=== PATIENT | male | born 1940 | race Caucasian/White ===

== ENCOUNTER 2022-05-28 19:35 | Inpatient (IN) | payer BC, MEDICARE ==
[~2022-05-28] VITALS: Ht 180.3 cm; Wt 88.6 kg
[2022-05-28 19:54] LABS: BASOPHILS % (AUTO) 0.1 % (0-1); EOSINOPHILS % (AUTO) 0 % (0-6); HEMATOCRIT 38.9 % (42.0-52.0); HEMOGLOBIN 12.9 g/dl (14.0-17.9); LYMPHOCYTES # (AUTO) 0.2 X10'3 (1.1-4.8); LYMPHOCYTES % (AUTO) 1.1 % (21-51); MEAN CORPUSCULAR HEMOGLOBIN 29.5 PG (27.0-31.0); MEAN CORPUSCULAR HGB CONC 33.2 g/dL (33.0-36.5); MEAN CORPUSCULAR VOLUME 88.7 FL (78-98); MEAN PLATELET VOLUME 6.6 FL (7.4-10.4); MONOCYTES % (AUTO) 5.4 % (2-12); NEUTROPHILS # (AUTO) 17.1 X10'3 (1.8-7.7); NEUTROPHILS % (AUTO) 93.4 % (42-75); PLATELET COUNT 175 X10'3 (140-440); RED BLOOD COUNT 4.39 X10'6 (4.70-6.10); RED CELL DISTRIBUTION WIDTH 14.3 % (11.5-14.5); WHITE BLOOD COUNT 18.4 X10'3 (4.5-11.0)
[2022-05-28] MEDS ORDERED: normal saline 1000ML IV soln IV ONE (19:55)
[2022-05-28] MEDS ORDERED: acetaminophen 325mg tablet PO STA (19:55)
[2022-05-28] MEDS ORDERED: piperacillin/tazo 3.375gm/50ml 50 ML IV ONE (19:55)
[2022-05-28 20:08] LABS: ALANINE AMINOTRANSFERASE 88 U/L (12-78); ALBUMIN 3.2 G/DL (3.4-5.0); ALKALINE PHOSPHATASE 224 IU/L (46-116); ANION GAP 12 (8-16); ASPARTATE AMINO TRANSFERASE 50 U/L (10-37); BLOOD UREA NITROGEN 29 MG/DL (7-18); BUN/CREATININE RATIO 17.5 (5.4-32.0); CALCIUM 8.9 MG/DL (8.5-10.1); CHLORIDE 96 MMOL/L (99-107); CREATININE 1.66 MG/DL (0.60-1.10); GLUCOSE 148 MG/DL (70-104); SODIUM 129 MMOL/L (135-145); TOTAL CARBON DIOXIDE 21.1 MMOL/L (24-32); eGFR 40 ML/MIN
[2022-05-28 20:17] LABS: ALBUMIN/GLOBULIN RATIO 0.9 (1.1-1.5); TOTAL PROTEIN 6.7 G/DL (6.4-8.2)
[2022-05-28] MEDS ORDERED: acetaminophen 1,000mg/100ml IV 100 ML IV ONE (20:20)
[2022-05-28 20:43] LABS: PLATELET ESTIMATE NORMAL; TOTAL CELLS COUNTED 100
[2022-05-28] MEDS: potassium Cl 10 mEq/100mL bag IV SCH ×2 (21:04→21:53)
[2022-05-28] MEDS ORDERED: magnesium hydroxide 30ml (MOM) UD suspension PO PRN (21:20)
[2022-05-28] MEDS ORDERED: mag hydrox/Alum hydrox/simeth 30ml oral suspension PO PRN (21:20)
[2022-05-28] MEDS ORDERED: acetaminophen 325mg tablet PO PRN (21:20)
[2022-05-28] MEDS ORDERED: potassium Cl 40MEQ/1/2NS 520ml 520 ML IV PRN (21:20)
[2022-05-28] MEDS ORDERED: magnesium Cl slow-release 64mg tablet PO PRN (21:20)
[2022-05-28] MEDS ORDERED: potassium Cl 20 mEq SR tablet PO PRN ×2 (21:20)
[2022-05-28] MEDS ORDERED: morphine 2 MG/ML inj. syringe IV PRN (21:20)
[2022-05-28] MEDS ORDERED: magnesium 4gm in 100ml NS 100 ML IV PRN (21:20)
[2022-05-28 22:10] LABS: LIPASE 94 U/L (73-393)
[2022-05-28] MEDS: normal saline 1000ml 1,000 ML IV SCH (22:12)
[2022-05-28 22:33] LABS: GLUCOSE, URINE NEGATIVE (Neg); KETONES,URINE TRACE mg/dl (Neg); LEUKOCYTE ESTERASE ,URINE NEGATIVE (Neg); NITRITES, URINE NEGATIVE (Neg); OCCULT BLOOD,URINE TRACE-INTACT (Neg); PROTEIN,URINE 30 mg/dl (Neg); UROBILINOGEN,URINE 0.2 E.U/dL (0.2-1.0)
[2022-05-28 22:38] LABS: COLOR,URINE AMBER (Yellow); UA COLLECTION TYPE CLN CATCH MIDSTREAM
[2022-05-28 22:41] LABS: AMORPHOUS URATES 1+; BACTERIA,URINE FEW /HPF (Neg); RBC,URINE 0-2 /HPF (0-2); SQUAMOUS EPITHELIAL CELL,UR FEW /LPF (FEW); WBC,URINE 0-4 /HPF (0-4)
[2022-05-28 22:42] LABS: CLARITY,URINE SLIGHTLY CLOUDY (Clear)
[2022-05-28] MEDS ORDERED: PERFLUTREN PROTEIN-A MICROSPHR (Optison) 0.22 MG/ML 3ML VIAL IV PRN (22:55)
[2022-05-29] VITALS (13 sets, daily range): BP systolic 104–133; BP diastolic 44–74
[2022-05-29] MEDS: morphine 2 MG/ML inj. syringe IV PRN (01:14)
[2022-05-29] MEDS: ondansetron/PF 4mg/2ml inj IV PRN (01:14)
[2022-05-29] MEDS: piperacillin/tazo 3.375gm/50ml 50 ML IV SCH ×3 (04:11→19:49)
[2022-05-29 04:18] LABS: BASOPHILS % (AUTO) 0.1 % (0-1); EOSINOPHILS % (AUTO) 0.1 % (0-6); HEMATOCRIT 36.1 % (42.0-52.0); HEMOGLOBIN 12.2 g/dl (14.0-17.9); LYMPHOCYTES % (AUTO) 3.6 % (21-51); MEAN CORPUSCULAR HEMOGLOBIN 30.2 PG (27.0-31.0); MEAN CORPUSCULAR HGB CONC 33.9 g/dL (33.0-36.5); MEAN CORPUSCULAR VOLUME 88.9 FL (78-98); MEAN PLATELET VOLUME 6.9 FL (7.4-10.4); MONOCYTES # (AUTO) 1.4 X10'3 (0-0.9); MONOCYTES % (AUTO) 5.1 % (2-12); NEUTROPHILS # (AUTO) 24.7 X10'3 (1.8-7.7); NEUTROPHILS % (AUTO) 91.1 % (42-75); PLATELET COUNT 194 X10'3 (140-440); RED BLOOD COUNT 4.06 X10'6 (4.70-6.10); RED CELL DISTRIBUTION WIDTH 14.2 % (11.5-14.5)
[2022-05-29 04:21] LABS: WHITE BLOOD COUNT 27.1 X10'3 (4.5-11.0)
[2022-05-29 04:45] LABS: ALANINE AMINOTRANSFERASE 78 U/L (12-78); ALBUMIN 2.8 G/DL (3.4-5.0); ALKALINE PHOSPHATASE 189 IU/L (46-116); ANION GAP 10 (8-16); ASPARTATE AMINO TRANSFERASE 45 U/L (10-37); BILIRUBIN,TOTAL 5.3 MG/DL (0.1-1.0); BLOOD UREA NITROGEN 27 MG/DL (7-18); BUN/CREATININE RATIO 15.3 (5.4-32.0); CALCIUM 8.4 MG/DL (8.5-10.1); CHLORIDE 98 MMOL/L (99-107); CREATININE 1.76 MG/DL (0.60-1.10); GLUCOSE 130 MG/DL (70-104); MAGNESIUM 2.2 MG/DL (1.5-2.4); SODIUM 130 MMOL/L (135-145); TOTAL CARBON DIOXIDE 22.3 MMOL/L (24-32); eGFR 37 ML/MIN
[2022-05-29 04:46] LABS: ALBUMIN/GLOBULIN RATIO 0.8 (1.1-1.5); TOTAL PROTEIN 6.4 G/DL (6.4-8.2)
--- NOTE | 2022-05-29 05:20 | NUR ---
Pt reported bilat feet itching after morphine administered, then requested hydrocortisone cream for itch as that is what he uses at home for his itching. No rash noted. Reported concern to [facility] and will monitor reaction to next dose of Morphine. Will pass on to day shift nurse in report.
[2022-05-29] MEDS ORDERED: ipratropium/albuterol 3ml nebule NEB ONE (06:50)
--- NOTE | 2022-05-29 06:58 | NUR ---
PAGED RT TWICE FOR STAT BREATHING TX DUE TO SUDDEN ONSET OF WHEEZING .MADE DR VALENTINE AWARE OF PT SITUATION (RR IN BTW 30-40'S )WHEEZING ALL OVER, GIVEN STAT ORDERS FOR DUO NEB TX STAT BY DR VALENTINE .
--- NOTE | 2022-05-29 07:03 | NUR ---
MOSHE RT AT BEDSIDE FOR BREATHING TX.
--- NOTE | 2022-05-29 07:22 | NUR ---
Hospitalist Dr. Ryan notified of change in pt condition. Pt requesting IV Tylenol for 10/10 abd pain. Pt O2 sats dropped briefly into 70s-80s and began wheezing, but after c&db it improved to 93%. Notified Jerry OSUNA who notified Dr. Gore who ordered Duoneb tx. RT at bedside.
[2022-05-29] MEDS ORDERED: atorvastatin 20mg tablet PO SCH (08:00)
[2022-05-29] MEDS ORDERED: acetaminophen 1,000mg/100ml IV 100 ML IV ONE (08:05)
[2022-05-29] MEDS: docusate sod 100mg capsule PO SCH ×2 (10:39→19:49)
[2022-05-29] MEDS: pantoprazole 40mg Tablet.DR PO SCH (10:39)
[2022-05-29] MEDS: levoTHYROXINE 75mcg tablet PO SCH (10:39)
[2022-05-29] MEDS: normal saline 1000ml 1,000 ML IV SCH (10:40)
[2022-05-29] MEDS ORDERED: iohexol 300mg/ml 100ml inj. ONE (11:24)
[2022-05-29] MEDS ORDERED: LIDOcaine Viscous 15ml cup ONE (11:25)
[2022-05-29] MEDS ORDERED: glucagon, human recombinant 1mg kit ONE (11:25)
[2022-05-29] MEDS ORDERED: fentaNYL/PF 50MCG/1 ML 2ML syringe ONE (11:25)
[2022-05-29] MEDS ORDERED: MIDAZolam 1 MG/ML 5ML VIAL ONE (11:25)
[2022-05-29] MEDS ORDERED: proCHLORperazine 10 MG/2 ml inj ONE (11:25)
[2022-05-29] MEDS ORDERED: LISI40TA13 PO (15:53)
[2022-05-29] MEDS ORDERED: CHLO25TA10 PO (15:53)
[2022-05-29] MEDS ORDERED: DOXY-1 PO (15:53)
[2022-05-29] MEDS ORDERED: FLO0.4C PO (15:53)
[2022-05-29] MEDS ORDERED: LEVO75TA PO (15:53)
[2022-05-29] MEDS ORDERED: ATOR40TA PO (15:53)
[2022-05-29] MEDS ORDERED: OMEP20CA16 PO (15:53)
[2022-05-29] MEDS ORDERED: ALBU6.7H14 INH (17:06)
[2022-05-29] MEDS ORDERED: AMLO5TAB16 PO (17:07)
[2022-05-29] MEDS ORDERED: CYAN500T46 PO (17:10)
[2022-05-29] MEDS ORDERED: CHOL10006 PO (17:12)
[2022-05-29] MEDS ORDERED: NABU-139 PO (17:15)
[2022-05-29] MEDS ORDERED: MOMETASONE IH (17:15)
[2022-05-29] MEDS ORDERED: SERT-432 PO (17:16)
[2022-05-29] MEDS ORDERED: traZODone 50mg tablet PO ONE (20:40)
[2022-05-30] VITALS (20 sets, daily range): BP systolic 122–150; BP diastolic 46–71
[2022-05-30] MEDS: normal saline 1000ml 1,000 ML IV SCH (04:06)
[2022-05-30] MEDS: piperacillin/tazo 3.375gm/50ml 50 ML IV SCH ×3 (04:06→20:20)
[2022-05-30 06:31] LABS: BASOPHILS % (AUTO) 0.1 % (0-1); EOSINOPHILS # (AUTO) 0.1 X10'3 (0-0.9); EOSINOPHILS % (AUTO) 0.3 % (0-6); HEMATOCRIT 33.1 % (42.0-52.0); HEMOGLOBIN 11.1 g/dl (14.0-17.9); LYMPHOCYTES # (AUTO) 1.1 X10'3 (1.1-4.8); LYMPHOCYTES % (AUTO) 5.4 % (21-51); MEAN CORPUSCULAR HGB CONC 33.6 g/dL (33.0-36.5); MEAN CORPUSCULAR VOLUME 89.5 FL (78-98); MONOCYTES # (AUTO) 1.2 X10'3 (0-0.9); NEUTROPHILS # (AUTO) 17.1 X10'3 (1.8-7.7); NEUTROPHILS % (AUTO) 88.2 % (42-75); PLATELET COUNT 141 X10'3 (140-440); RED CELL DISTRIBUTION WIDTH 14.2 % (11.5-14.5); WHITE BLOOD COUNT 19.4 X10'3 (4.5-11.0)
[2022-05-30] MEDS: levoTHYROXINE 75mcg tablet PO SCH (07:00)
[2022-05-30 07:28] LABS: ALANINE AMINOTRANSFERASE 74 U/L (12-78); ALBUMIN 2.4 G/DL (3.4-5.0); ALKALINE PHOSPHATASE 172 IU/L (46-116); ANION GAP 9 (8-16); ASPARTATE AMINO TRANSFERASE 70 U/L (10-37); BILIRUBIN,TOTAL 4.9 MG/DL (0.1-1.0); BLOOD UREA NITROGEN 41 MG/DL (7-18); BUN/CREATININE RATIO 22.4 (5.4-32.0); CALCIUM 8.3 MG/DL (8.5-10.1); CHLORIDE 102 MMOL/L (99-107); CREATININE 1.83 MG/DL (0.60-1.10); GLUCOSE 79 MG/DL (70-104); MAGNESIUM 2.5 MG/DL (1.5-2.4); POTASSIUM 3.7 MMOL/L (3.5-5.1); SODIUM 132 MMOL/L (135-145); TOTAL CARBON DIOXIDE 20.9 MMOL/L (24-32); eGFR 36 ML/MIN
[2022-05-30 07:30] LABS: ALBUMIN/GLOBULIN RATIO 0.7 (1.1-1.5); TOTAL PROTEIN 5.9 G/DL (6.4-8.2)
[2022-05-30] MEDS: pantoprazole 40mg Tablet.DR PO SCH (07:30)
[2022-05-30] MEDS: docusate sod 100mg capsule PO SCH ×2 (08:00→20:19)
[2022-05-30] MEDS ORDERED: BUPIVAcaine 0.5% inj/PF 30 ML ONE (14:05)
[2022-05-30] MEDS ORDERED: sevoflurane 250ml liquid IH ONE (14:20)
[2022-05-30] MEDS ORDERED: fentaNYL/PF 50MCG/1 ML 2ML syringe ONE (14:25)
[2022-05-30] MEDS ORDERED: BUPIVAcaine 0.5% inj/PF 30 ml vial IJ ONE (15:05)
[2022-05-30] MEDS ORDERED: rocuronium 10mg/ml inj IV ONE (15:20)
[2022-05-30] MEDS ORDERED: dexamethasone sod phosphate 4mg/ml inj. ONE (15:20)
[2022-05-30] MEDS ORDERED: sugammadex 200mg/2ml injection IV ONE (15:20)
[2022-05-30] MEDS ORDERED: LIDOcaine 2% (20mg/ml) 5ml vial ONE (15:20)
[2022-05-30] MEDS ORDERED: propofol inj 20 ML IV ONE (15:20)
[2022-05-30] MEDS ORDERED: ondansetron/PF 4mg/2ml inj ONE (15:20)
--- NOTE | 2022-05-30 15:34 | NUR ---
Received from OR via , accompanied by Anesthesiologist DR BEJARANO and report given by Anesthesiolgist. VSS, PATIENT ON 10 LITERS WITH MASK AT 100%. IV IN LFA, OZZY DRAIN ON RIGHT LATERAL ABD WITH ADEQUATE DRAINAGE. PATIENT STATES NO PAIN. Addendum: 05/30/22 at 1555 by Kristin Bautista RN Amended: Links added.
[2022-05-30] MEDS ORDERED: naloxone 0.4 mg/ml inj IV PRN (15:35)
[2022-05-30] MEDS ORDERED: ipratropium/albuterol 3ml nebule NEB ONE (15:40)
[2022-05-30] MEDS ORDERED: HYDROmorphone/PF 0.2 MG/ML SYRINGE IV PRN ×2 (15:55)
[2022-05-30] MEDS ORDERED: ringers solution, lacted 1,000 ML IV SCH (15:55)
[2022-05-30] MEDS ORDERED: ondansetron/PF 4mg/2ml inj IV PRN (15:55)
[2022-05-30] MEDS ORDERED: morphine 2 MG/ML inj. syringe IV PRN (15:55)
[2022-05-30] MEDS: morphine 2 MG/ML inj. syringe IV PRN ×2 (16:06→20:20)
--- NOTE | 2022-05-30 17:05 | NUR ---
REPORT GIVEN TO TIM OSUNA, PT GOING TO ROOM 3014. PT'S PAIN CONTROLLED, VSS.
[2022-05-30] MEDS: HYDROcodone/acetaminophen 10/325mg tab PO PRN (18:23)
[2022-05-30] MEDS: ondansetron/PF 4mg/2ml inj IV PRN (18:27)
[2022-05-30] MEDS: furosemide 20 MG/2 ML vial IV SCH (20:19)
[2022-05-30] MEDS ORDERED: HYDROmorphone/PF 0.2 MG/ML SYRINGE IV ONE (21:10)
[2022-05-31] VITALS (7 sets, daily range): BP systolic 123–138; BP diastolic 49–84
[2022-05-31] MEDS: piperacillin/tazo 3.375gm/50ml 50 ML IV SCH ×3 (04:12→21:57)
[2022-05-31 06:51] LABS: BASOPHILS % (AUTO) 0.1 % (0-1); EOSINOPHILS % (AUTO) 0.1 % (0-6); HEMATOCRIT 35.3 % (42.0-52.0); HEMOGLOBIN 11.6 g/dl (14.0-17.9); LYMPHOCYTES # (AUTO) 0.6 X10'3 (1.1-4.8); LYMPHOCYTES % (AUTO) 3.6 % (21-51); MEAN CORPUSCULAR HEMOGLOBIN 29.5 PG (27.0-31.0); MEAN CORPUSCULAR VOLUME 89.6 FL (78-98); MEAN PLATELET VOLUME 7.4 FL (7.4-10.4); MONOCYTES # (AUTO) 0.9 X10'3 (0-0.9); MONOCYTES % (AUTO) 5.8 % (2-12); NEUTROPHILS # (AUTO) 14.3 X10'3 (1.8-7.7); NEUTROPHILS % (AUTO) 90.4 % (42-75); PLATELET COUNT 174 X10'3 (140-440); RED BLOOD COUNT 3.94 X10'6 (4.70-6.10); RED CELL DISTRIBUTION WIDTH 14.7 % (11.5-14.5); WHITE BLOOD COUNT 15.8 X10'3 (4.5-11.0)
--- NOTE | 2022-05-31 07:15 | NUR ---
sent to [facility], [place]: [id number] Lydia: pt would like order for mucinex. he states he takes at home for mucus congestion which he has now. Having trouble coughing it up. Thank you. Yissel OSUNA 1947
[2022-05-31 07:20] LABS: ALANINE AMINOTRANSFERASE 90 U/L (12-78); ALBUMIN 2.6 G/DL (3.4-5.0); ALBUMIN/GLOBULIN RATIO 0.6 (1.1-1.5); ALKALINE PHOSPHATASE 201 IU/L (46-116); ANION GAP 10 (8-16); ASPARTATE AMINO TRANSFERASE 76 U/L (10-37); BILIRUBIN,TOTAL 2.9 MG/DL (0.1-1.0); BLOOD UREA NITROGEN 48 MG/DL (7-18); BUN/CREATININE RATIO 25.3 (5.4-32.0); CALCIUM 8.8 MG/DL (8.5-10.1); CHLORIDE 98 MMOL/L (99-107); GLUCOSE 165 MG/DL (70-104); MAGNESIUM 2.8 MG/DL (1.5-2.4); POTASSIUM 4.7 MMOL/L (3.5-5.1); SODIUM 130 MMOL/L (135-145); TOTAL CARBON DIOXIDE 22.2 MMOL/L (24-32); TOTAL PROTEIN 6.7 G/DL (6.4-8.2); eGFR 34 ML/MIN
[2022-05-31] MEDS: levoTHYROXINE 75mcg tablet PO SCH (07:46)
[2022-05-31] MEDS: furosemide 20 MG/2 ML vial IV SCH ×2 (07:47→21:57)
[2022-05-31] MEDS: pantoprazole 40mg Tablet.DR PO SCH (07:47)
--- NOTE | 2022-05-31 08:54 | NUR ---
ORDERS FOR MUCINEX BID PUT IN PER DR. FREY.
[2022-05-31] MEDS: guaiFENesin ER 600mg tablet PO SCH ×2 (10:38→20:24)
[2022-05-31] MEDS ORDERED: albuterol 2.5 MG/3 ML nebule NEB PRN (14:19)
[2022-05-31] MEDS: HYDROcodone/acetaminophen 10/325mg tab PO PRN (15:14)
[2022-05-31] MEDS: lisinopril 20mg tablet PO SCH (15:14)
--- NOTE | 2022-05-31 18:40 | NUR ---
Patient in room PCU 3014. I have received report from Mikayla and had the opportunity to ask questions and assume patient care.
[2022-05-31] MEDS: amLODIPine 5mg tablet PO SCH (20:00)
[2022-05-31] MEDS ORDERED: non-formulary drug (Omeprazole 1 CAP) PO SCH (20:00)
[2022-05-31] MEDS: sertraline 25mg tablet PO SCH (20:26)
[2022-06-01 02:00] VITALS: BP 139/52
[2022-06-01] MEDS: piperacillin/tazo 3.375gm/50ml 50 ML IV SCH ×3 (04:53→20:34)
[2022-06-01 06:00] VITALS: BP 148/53
--- NOTE | 2022-06-01 06:11 | NUR ---
Problems reprioritized. Patient report given, questions answered & plan of care reviewed with Chapis OSUNA.
--- NOTE | 2022-06-01 06:31 | NUR ---
Patient in room PCU 3014. I have received report from Mariana ARAUJO and had the opportunity to ask questions and assume patient care.Bedside report completed. Lab at bedside. Addendum: 06/01/22 at 0632 by Chapis Rosas RN Amended: Links added.
[2022-06-01 07:08] LABS: BASOPHILS % (AUTO) 0.1 % (0-1); EOSINOPHILS % (AUTO) 0.2 % (0-6); HEMATOCRIT 37.7 % (42.0-52.0); HEMOGLOBIN 12.8 g/dl (14.0-17.9); LYMPHOCYTES # (AUTO) 1.2 X10'3 (1.1-4.8); LYMPHOCYTES % (AUTO) 7.1 % (21-51); MEAN CORPUSCULAR HEMOGLOBIN 30.2 PG (27.0-31.0); MEAN CORPUSCULAR HGB CONC 33.9 g/dL (33.0-36.5); MEAN CORPUSCULAR VOLUME 89.1 FL (78-98); MEAN PLATELET VOLUME 7.3 FL (7.4-10.4); MONOCYTES # (AUTO) 1.4 X10'3 (0-0.9); MONOCYTES % (AUTO) 8.5 % (2-12); NEUTROPHILS # (AUTO) 14.3 X10'3 (1.8-7.7); NEUTROPHILS % (AUTO) 84.1 % (42-75); PLATELET COUNT 156 X10'3 (140-440); RED BLOOD COUNT 4.23 X10'6 (4.70-6.10); RED CELL DISTRIBUTION WIDTH 14.4 % (11.5-14.5)
[2022-06-01 07:22] LABS: ALANINE AMINOTRANSFERASE 77 U/L (12-78); ALBUMIN 2.6 G/DL (3.4-5.0); ALBUMIN/GLOBULIN RATIO 0.6 (1.1-1.5); ALKALINE PHOSPHATASE 194 IU/L (46-116); ANION GAP 7 (8-16); ASPARTATE AMINO TRANSFERASE 47 U/L (10-37); BILIRUBIN,TOTAL 2.5 MG/DL (0.1-1.0); BLOOD UREA NITROGEN 47 MG/DL (7-18); BUN/CREATININE RATIO 27.6 (5.4-32.0); CALCIUM 8.7 MG/DL (8.5-10.1); CHLORIDE 96 MMOL/L (99-107); GLUCOSE 108 MG/DL (70-104); MAGNESIUM 2.4 MG/DL (1.5-2.4); SODIUM 129 MMOL/L (135-145); TOTAL CARBON DIOXIDE 25.8 MMOL/L (24-32); TOTAL PROTEIN 6.8 G/DL (6.4-8.2); eGFR 39 ML/MIN
[2022-06-01] MEDS: cholecalciferol (vitamin D3) 1,000 unit (25mcg) tablet PO SCH (07:34)
[2022-06-01] MEDS: levoTHYROXINE 75mcg tablet PO SCH (07:35)
[2022-06-01] MEDS: pantoprazole 40mg Tablet.DR PO SCH (07:35)
[2022-06-01] MEDS: cyanocobalamin 500mcg tablet PO SCH (07:35)
[2022-06-01] MEDS: tamsulosin 0.4mg capsule PO SCH (07:36)
[2022-06-01] MEDS: lisinopril 20mg tablet PO SCH (07:37)
[2022-06-01] MEDS: amLODIPine 5mg tablet PO SCH ×2 (07:38→20:33)
[2022-06-01] MEDS: guaiFENesin ER 600mg tablet PO SCH ×2 (07:38→20:31)
[2022-06-01] MEDS: furosemide 20 MG/2 ML vial IV SCH ×2 (07:40→20:34)
[2022-06-01] MEDS ORDERED: chlorthalidone 25mg tablet PO SCH (08:00)
[2022-06-01] MEDS: fluticasone nasal spray 16GM bottle NS SCH (08:00)
[2022-06-01] MEDS ORDERED: NABUMETONE PO PRN (09:00)
--- NOTE | 2022-06-01 09:45 | NUR ---
Initial: Pt admit for sepsis, choledocholithiasis, POLO with hyponatremia and hypokalemia, leukocytosis, elevated troponin, and elevated proBNP. Pt currently POD #2 s/p laparoscopic cholecystectomy. Diet has been advanced to clear liquids and pt documented with 100% PO intake, however not meeting estimated nutrient needs d/t the nature of the diet. Recommend advancing to regular versus low fat diet as medically indicated. LBM 05/27, with an ileus per physician note. Unable to provide nutrition intervention to assist with bowel regularity d/t current diet order. Pt with PRN bowel care available. Will continue to follow closely and make recommendations as appropriate. Recommendations: 1) Advance to regular versus low fat diet as medically indicated 2) Monitor need for ONS/additional protein with diet advancement 3) Routine bowel care; utilize PRN bowel care 4) Weekly scaled weights Addendum: 06/01/22 at [address] Amended: Links added.
[2022-06-01 11:10] VITALS: BP 132/52
[2022-06-01 15:02] VITALS: BP 124/45
[2022-06-01 18:00] VITALS: BP 150/55
--- NOTE | 2022-06-01 18:49 | NUR ---
Patient in room PCU 3014. I have received report from Chapis OSUNA and had the opportunity to ask questions and assume patient care.
[2022-06-01] MEDS: sertraline 25mg tablet PO SCH (20:31)
[2022-06-01] MEDS: HYDROcodone/acetaminophen 10/325mg tab PO PRN (20:31)
[2022-06-01] MEDS: heparin, porcine 5000 units/ml vial SQ SCH (20:33)
[2022-06-01 22:00] VITALS: BP 133/47
[2022-06-02 02:00] VITALS: BP 135/49
[2022-06-02] MEDS: piperacillin/tazo 3.375gm/50ml 50 ML IV SCH (04:17)
[2022-06-02] MEDS: HYDROcodone/acetaminophen 10/325mg tab PO PRN (04:18)
[2022-06-02 06:30] VITALS: BP 143/50
--- NOTE | 2022-06-02 06:47 | NUR ---
Problems reprioritized. Patient report given, questions answered & plan of care reviewed with Adrianne RN.
[2022-06-02 07:03] LABS: BASOPHILS % (AUTO) 0.2 % (0-1); EOSINOPHILS # (AUTO) 0.1 X10'3 (0-0.9); EOSINOPHILS % (AUTO) 0.8 % (0-6); HEMATOCRIT 36.9 % (42.0-52.0); HEMOGLOBIN 12.4 g/dl (14.0-17.9); LYMPHOCYTES # (AUTO) 1.5 X10'3 (1.1-4.8); LYMPHOCYTES % (AUTO) 10.1 % (21-51); MEAN CORPUSCULAR HEMOGLOBIN 29.8 PG (27.0-31.0); MEAN CORPUSCULAR HGB CONC 33.6 g/dL (33.0-36.5); MEAN CORPUSCULAR VOLUME 88.5 FL (78-98); MEAN PLATELET VOLUME 7.3 FL (7.4-10.4); MONOCYTES # (AUTO) 1.7 X10'3 (0-0.9); MONOCYTES % (AUTO) 11.8 % (2-12); NEUTROPHILS # (AUTO) 11.1 X10'3 (1.8-7.7); NEUTROPHILS % (AUTO) 77.1 % (42-75); PLATELET COUNT 188 X10'3 (140-440); RED BLOOD COUNT 4.17 X10'6 (4.70-6.10); RED CELL DISTRIBUTION WIDTH 14.4 % (11.5-14.5); WHITE BLOOD COUNT 14.4 X10'3 (4.5-11.0)
--- NOTE | 2022-06-02 07:05 | NUR ---
Patient in room PCU 3014. I have received report from Mariana ARAUJO and had the opportunity to ask questions and assume patient care.pt bed low call light within reach Addendum: 06/02/22 at 0706 by Mandie Verdin RN Amended: Links added.
[2022-06-02 07:12] LABS: ALANINE AMINOTRANSFERASE 66 U/L (12-78); ALBUMIN 2.6 G/DL (3.4-5.0); ALBUMIN/GLOBULIN RATIO 0.7 (1.1-1.5); ALKALINE PHOSPHATASE 186 IU/L (46-116); ANION GAP 8 (8-16); ASPARTATE AMINO TRANSFERASE 35 U/L (10-37); BILIRUBIN,TOTAL 2.1 MG/DL (0.1-1.0); BLOOD UREA NITROGEN 43 MG/DL (7-18); BUN/CREATININE RATIO 25.9 (5.4-32.0); CHLORIDE 94 MMOL/L (99-107); CREATININE 1.66 MG/DL (0.60-1.10); GLUCOSE 133 MG/DL (70-104); MAGNESIUM 2.2 MG/DL (1.5-2.4); SODIUM 128 MMOL/L (135-145); TOTAL CARBON DIOXIDE 25.9 MMOL/L (24-32); TOTAL PROTEIN 6.6 G/DL (6.4-8.2); eGFR 40 ML/MIN
[2022-06-02 07:57] LABS: PLATELET ESTIMATE NORMAL; TOTAL CELLS COUNTED 100
[2022-06-02] MEDS: heparin, porcine 5000 units/ml vial SQ SCH (08:00)
[2022-06-02] MEDS: cholecalciferol (vitamin D3) 1,000 unit (25mcg) tablet PO SCH (08:56)
[2022-06-02] MEDS: cyanocobalamin 500mcg tablet PO SCH (08:56)
[2022-06-02 08:57] VITALS: BP_SYST 147
[2022-06-02] MEDS: pantoprazole 40mg Tablet.DR PO SCH (08:57)
[2022-06-02] MEDS: guaiFENesin ER 600mg tablet PO SCH (08:57)
[2022-06-02] MEDS: tamsulosin 0.4mg capsule PO SCH (08:57)
[2022-06-02] MEDS: lisinopril 20mg tablet PO SCH (08:57)
[2022-06-02] MEDS: amLODIPine 5mg tablet PO SCH (08:57)
[2022-06-02] MEDS: furosemide 20 MG/2 ML vial IV SCH (08:58)
[2022-06-02] MEDS: levoTHYROXINE 75mcg tablet PO SCH (09:03)
[2022-06-02] MEDS: fluticasone nasal spray 16GM bottle NS SCH (09:03)
[2022-06-02] MEDS ORDERED: GUAI600T45 PO (09:11)
[2022-06-02] MEDS ORDERED: AMOX-580 PO (09:11)
[2022-06-02] MEDS ORDERED: HYDR-3965 PO (09:11)
== END 2022-06-02 14:10 | disposition home or self-care (01) | DRG 853 ==
LOC: ER 19:36 → ED HOLD 21:31 → PCU 3S 05-29 08:30
PROVIDERS: ADMIT Family Medicine; ATTEND Internal Medicine
PROC: 0FC98ZZ Extirpation of Matter from Common Bile Duct, Via Natural or Artificial Opening Endoscopic (ICD-10-PCS; 2022-05-29)
PROC: 0FT44ZZ Resection of Gallbladder, Percutaneous Endoscopic Approach (ICD-10-PCS; principal; 2022-05-30 14:20)
DX: A40.9 Streptococcal sepsis, unspecified (principal); I21.A1 Myocardial infarction type 2; K80.30 Calculus of bile duct with cholangitis, unspecified, without obstruction; K56.7 Ileus, unspecified; E87.1 Hypo-osmolality and hyponatremia; J98.11 Atelectasis; N17.9 Acute kidney failure, unspecified; E03.9 Hypothyroidism, unspecified; E78.00 Pure hypercholesterolemia, unspecified; I12.9 Hypertensive chronic kidney disease with stage 1 through stage 4 chronic kidney disease, or unspecified chronic kidney disease; N18.30 Chronic kidney disease, stage 3 unspecified; I27.20 Pulmonary hypertension, unspecified; I48.0 Paroxysmal atrial fibrillation; I25.2 Old myocardial infarction; K82.8 Other specified diseases of gallbladder; K80.70 Calculus of gallbladder and bile duct without cholecystitis without obstruction; K57.30 Diverticulosis of large intestine without perforation or abscess without bleeding; I71.43 Infrarenal abdominal aortic aneurysm, without rupture; R65.20 Severe sepsis without septic shock; Z86.711 Personal history of pulmonary embolism; Z79.899 Other long term (current) drug therapy; N40.0 Benign prostatic hyperplasia without lower urinary tract symptoms; Z87.891 Personal history of nicotine dependence
CPT/HCPCS: 36415; 43262; 43264; 71045; 74176; 76700; 80053; 81001; 82948; 83605; 83690; 83735; 83880; 84145; 84443; 84484; 85007; 85025; 87040; 87077; 87186; 93005; 93306; 94640; 94760; 97116; 97161; 97164; 97530; 99152; 99153; 99285; A4215; A4618; A4620; A6402; A6449; A7000; C1769; G0378; J0131; J0780; J1100; J1170; J1610; J1644; J1940; J2250; J2270; J2405; J2543; J2704; J3010; J3480; J3490; J7030; J7040; J7120; Q9967; S0020